=== PATIENT | female | born 1980 | race American Indian/Alaskan Native ===

== ENCOUNTER 2019-01-26 08:17 | Outpatient (CLI) | payer BC ==
[2019-01-26 08:48] LABS: Hematocrit 36.7 % (30.3-42.9); Hemoglobin 11.8 gm/dl (10.1-14.3); Mean Corpuscular HGB Conc 32 % (30-34); Mean Corpuscular Volume 80 fl (79-97); Platelet Count 286 K/mm3 (140-440); Red Blood Count 4.61 M/mm3 (3.65-5.03); Red Cell Distribution Width 15.2 % (13.2-15.2)
[2019-01-26 09:06] LABS: Alanine Aminotransferase 32 units/L (7-56); BUN/Creatinine Ratio 20; Blood Urea Nitrogen 14 mg/dL (7-17); Calcium 9.1 mg/dL (8.4-10.2); Chol/HDL Ratio 2.28 %; HDL Cholesterol 56 mg/dL (40-59); Hemolysis Index 0; LDL Cholesterol,Direct 77 mg/dL (50-130)
--- NOTE | 2019-01-26 10:00 | Mammography Report ---
BILATERAL DIGITAL DIAGNOSTIC MAMMOGRAM HISTORY: 611.6 Milky and yellowish nipple discharge. TECHNIQUE: Routine 2-D mammographic views plus right lateral and spot compression views.] COMPARISON: None. FINDINGS: Breast Density: Scattered fibroglandular appearance of the breast tissue. No mass, architectural distortion or suspicious calcifications. IMPRESSION: No mammographic evidence of malignancy. Recommend routine mammographic screening based on ACS guidel florin. BIRADS 1: Negative. FURTHER INFORMATION: According to the [employer], yearly mammograms are recommend ed starting at age 40 and continuing as long as a woman is in good health. Clinical Breast Exams shou ld be part of a periodic health exam-about every 3 years for women in their 20s and 30s and every yea r for women 40 and over. Breast self exam is an option for women starting in their 20s. Any breast ch sai noted on a breast self exam should be reported promptly to the patient's healthcare provider. Br east MRI is recommended for women with an approximately 20-25% or greater lifetime risk of breast can cer, including women with a strong family history of breast or ovarian cancer and women who have been treated for Hodgkin's disease. A negative Mammography report should not discourage follow up or biopsy of a clinically significant f inding and/or abnormality. Dense breast tissue may obscure small neoplasms. The patient will be entered into a reminder system with a target due date for the next screening mamm ogram. Signer Name: Kvng Siddiqui MD Signed: 01/26/2019 9:56 AM Workstation Name: [id number]
[2019-01-29 12:58] LABS: Vitamin D, 25-OH, D2 <4 ng/mL
== END 2019-01-26 08:18 | disposition home or self-care (01) ==
LOC: MAMMO 08:17
PROVIDERS: ATTEND Obstetrics & Gynecology
DX: Z13.1 Encounter for screening for diabetes mellitus (principal); Z13.220 Encounter for screening for lipoid disorders; Z13.21 Encounter for screening for nutritional disorder; Z11.3 Encounter for screening for infections with a predominantly sexual mode of transmission; N64.3 Galactorrhea not associated with childbirth; N64.52 Nipple discharge
CPT/HCPCS: 36415; 77066; 80053; 80061; 82306; 83036; 84146; 84443; 85027; 86592; 86706; 86803; 87806

== ENCOUNTER 2020-05-02 16:18 | Emergency (ER) | payer BC ==
--- NOTE | 2020-05-02 16:24 | Event Note ---
ED Screening Note Date of service: 05/02/20 Time: 16:24 ED Screening Note: Complains of cough and shortness of breath x5 days Patient is a sent here by her doctor to rule out pneumonia This initial assessment/diagnostic orders/clinical plan/treatment(s) is/are subject to change based on patients health status, clinical progression and re- assessment by fellow clinical providers in the ED. Further treatment and workup at subsequent clinical providers discretion. Patient/guardian urged not to elope from the ED as their condition may be serious if not clinically assessed and managed. Initial orders include: Labs Chest x-ray
[2020-05-02 16:27] VITALS: BP 153/79
[2020-05-02 17:09] LABS: Basophils # (Auto) 0.1 K/mm3 (0.0-0.1); Basophils % (Auto) 0.8 % (0.0-1.8); Eosinophils % (Auto) 0.6 % (0.0-4.3); Hematocrit 35.8 % (30.3-42.9); Lymphocytes # (Auto) 2.9 K/mm3 (1.2-5.4); Lymphocytes % (Auto) 42.1 % (13.4-35.0); Mean Corpuscular HGB Conc 34 % (30-34); Mean Corpuscular Volume 78 fl (79-97); Monocytes # (Auto) 0.6 K/mm3 (0.0-0.8); Monocytes % (Auto) 8.4 % (0.0-7.3); Platelet Count 349 K/mm3 (140-440); Red Blood Count 4.58 M/mm3 (3.65-5.03); Red Cell Distribution Width 15.7 % (13.2-15.2)
--- NOTE | 2020-05-02 17:14 | XRay Report ---
CHEST 2 VIEWS INDICATION / CLINICAL INFORMATION: Cough, congestion and difficulty breathing for one week.. COMPARISON: None available. FINDINGS: SUPPORT DEVICES: None. HEART / MEDIASTINUM: The heart size and pulmonary vasculature are normal. LUNGS / PLEURA: No significant pulmonary or pleural abnormality. No pneumothorax. ADDITIONAL FINDINGS: No significant additional findings. IMPRESSION: No acute findings. Signer Name: Herbert Hawkins MD Signed: 05/02/2020 5:09 PM Workstation Name: [id number]
--- NOTE | 2020-05-02 17:30 | Emergency Department Report ---
ED General Adult HPI - General Chief complaint: Upper Respiratory Infection Stated complaint: CHEST PAINS Time Seen by Provider: 05/02/20 16:21 Source: patient Mode of arrival: Ambulatory Limitations: No Limitations - History of Present Illness Initial comments: 39-year-old -Cuban female patient presents with complaints of cough and shortness of breath x5 days. Patient states she was seen here by her doctor for a chest x-ray to rule out pneumonia. She is currently on day 5 of her Z-Tye and Medrol Dosepak and her symptoms have not improved. She states a fever 3 days ago of 100.5. She denies any hemoptysis, chest pain, nausea/vomiting/ diarrhea, or history of COPD. She does report recurrent bronchitis and denies history of smoking. Patient also denies any leg pain/swelling, history of DVT/PE, hormone use, or history of cancer. - Related Data Previous Rx's Medication Instructions Recorded Last Taken Type Albuterol Mdi (or & Nicu Only) 2 puff IH QID PRN #8.5 gram 05/02/20 Unknown Rx [ProAir HFA Inhaler] Levocetirizine Dihydrochloride 5 mg PO QHS #10 tablet 05/02/20 Unknown Rx [Xyzal] levoFLOXacin [Levaquin] 750 mg PO QDAY #5 tablet 05/02/20 Unknown Rx Allergies Allergy/AdvReac Type Severity Reaction Status Date / Time latex Allergy Rash Verified 05/02/20 16:23 Penicillins Allergy Rash,WHELPS Verified 05/02/20 16:23 ED Review of Systems ROS: Stated complaint: CHEST PAINS Other details as noted in HPI Constitutional: fever, malaise. denies: chills, diaphoresis, weakness ENT: denies: throat pain Respiratory: cough, shortness of breath Cardiovascular: denies: chest pain, palpitations, edema, syncope Endocrine: denies: excessive sweating Gastrointestinal: denies: abdominal pain, nausea, vomiting, diarrhea Musculoskeletal: denies: back pain Hematological/Lymphatic: denies: swollen glands ED Past Medical Hx - Past Medical History Hx Arthritis: Yes - Surgical History Hx Cholecystectomy: Yes - Social History Smoking Status: Never Smoker Substance Use Type: None - Medications Home Medications: Home Medications Medication Instructions Recorded Confirmed Last Taken Type Albuterol Mdi (or & Nicu Only) 2 puff IH QID PRN #8.5 gram 05/02/20 Unknown Rx [ProAir HFA Inhaler] Levocetirizine Dihydrochloride 5 mg PO QHS #10 tablet 05/02/20 Unknown Rx [Xyzal] levoFLOXacin [Levaquin] 750 mg PO QDAY #5 tablet 05/02/20 Unknown Rx ED Physical Exam - General Limitations: No Limitations General appearance: alert, in no apparent distress - Head Head exam: Present: atraumatic, normocephalic - Eye Eye exam: Present: normal appearance. Absent: scleral icterus - Neck Neck exam: Present: normal inspection, full ROM. Absent: lymphadenopathy - Respiratory Respiratory exam: Present: wheezes (Mild, diffuse), rhonchi (Diffuse). Absent: respiratory distress - Cardiovascular Cardiovascular Exam: Present: regular rate, normal rhythm, normal heart sounds - Extremities Exam Extremities exam: Present: full ROM. Absent: calf tenderness (No swelling or pain noted to legs bilaterally) - Back Exam Back exam: Present: normal inspection - Neurological Exam Neurological exam: Present: alert, oriented X3, normal gait - Psychiatric Psychiatric exam: Present: normal affect, normal mood - Skin Skin exam: Present: warm, dry, intact, normal color. Absent: rash, cyanosis, diaphoretic ED Course Vital Signs 05/02/20 16:23 Temperature 98.3 F Pulse Rate 86 Respiratory 18 Rate Blood Pressure 153/79 O2 Sat by Pulse 98 Oximetry ED Medical Decision Making - Lab Data Result diagrams: 05/02/20 16:39 05/02/20 16:39 Lab Results 05/02/20 05/02/20 Range/Units 16:39 16:39 WBC 6.9 (4.5-11.0) K/mm3 RBC 4.58 (3.65-5.03) M/mm3 Hgb 12.0 (10.1-14.3) gm/dl Hct 35.8 (30.3-42.9) % MCV 78 L (79-97) fl MCH 26 L (28-32) pg MCHC 34 (30-34) % RDW 15.7 H (13.2-15.2) % Plt Count 349 (140-440) K/mm3 Lymph % (Auto) 42.1 H (13.4-35.0) % Major % (Auto) 8.4 H (0.0-7.3) % Eos % (Auto) 0.6 (0.0-4.3) % Baso % (Auto) 0.8 (0.0-1.8) % Lymph # (Auto) 2.9 (1.2-5.4) K/mm3 Major # (Auto) 0.6 (0.0-0.8) K/mm3 Eos # (Auto) 0.0 (0.0-0.4) K/mm3 Baso # (Auto) 0.1 (0.0-0.1) K/mm3 Seg Neutrophils % 48.1 (40.0-70.0) % Seg Neutrophils # 3.3 (1.8-7.7) K/mm3 Sodium 137 (137-145) mmol/L Potassium 3.3 L (3.6-5.0) mmol/L Chloride 98.9 (98-107) mmol/L Carbon Dioxide 27 (22-30) mmol/L Anion Gap 14 mmol/L BUN 12 (7-17) mg/dL Creatinine 0.8 (0.6-1.2) mg/dL Estimated GFR > 60 ml/min BUN/Creatinine Ratio 15 % Glucose 83 (65-100) mg/dL Calcium 9.3 (8.4-10.2) mg/dL Total Bilirubin 0.30 (0.1-1.2) mg/dL AST 18 (5-40) units/L ALT 46 (7-56) units/L Alkaline Phosphatase 84 (35-129) units/L Total Protein 8.6 H (6.3-8.2) g/dL Albumin 4.3 (3.9-5) g/dL Albumin/Globulin Ratio 1.0 % - Radiology Data Radiology results: report reviewed CHEST 2 VIEWS INDICATION / CLINICAL INFORMATION: Cough, congestion and difficulty breathing for one week.. COMPARISON: None available. FINDINGS: SUPPORT DEVICES: None. HEART / MEDIASTINUM: The heart size and pulmonary vasculature are normal. LUNGS / PLEURA: No significant pulmonary or pleural abnormality. No pneumothorax. ADDITIONAL FINDINGS: No significant additional findings. IMPRESSION: No acute findings. - Medical Decision Making 39-year-old -Cub[place] female patient presents with complaints of cough and shortness of breath x5 days. Patient states she was seen here by her doctor for a chest x-ray to rule out pneumonia. She is currently on day 5 of her Z- Tye and Medrol Dosepak and her symptoms have not improved. She states a fever 3 days ago of 100.5. She denies any hemoptysis, chest pain, nausea/vomiting/diarrhea, or history of COPD. She does report recurrent bronchitis and denies history of smoking. Patient also denies any leg pain/swelling, history of DVT/PE, hormone use, or history of cancer. On exam, she has diffuse rhonchi with mild wheezing. Chest x-ray is negative fo r pneumonia or other acute findings. CBC shows normal white count. She is afebrile and nontachycardic and stable for discharge home. Patient to start Levaquin. Recommend patient get Covid testing tomorrow morning and self quarantine until results are back. Patient also to follow-up with her PCP within 3 days. Strict return precautions were discussed in great detail with patient who verbalizes understanding. Critical care attestation.: If time is entered above; I have spent that time in minutes in the direct care of this critically ill patient, excluding procedure time. ED Disposition Clinical Impression: Acute bacterial bronchitis Disposition: DC-01 TO HOME OR SELFCARE Is pt being admited?: No Condition: Stable Instructions: Acute Bronchitis, Adult, Acute Bronchitis (ED) Prescriptions: Levocetirizine Dihydrochloride [Xyzal] 5 mg PO QHS #10 tablet levoFLOXacin [Levaquin] 750 mg PO QDAY #5 tablet Albuterol Mdi (or & Nicu Only) [ProAir HFA Inhaler] 2 puff IH QID PRN #8.5 gram PRN Reason: Shortness Of Breath Referrals: PRIMARY CAREMD [Primary Care Provider] - 05/06/20 Forms: Work/School Release Form(ED)
[2020-05-02 17:40] LABS: Alanine Aminotransferase 46 units/L (7-56); Albumin 4.3 g/dL (3.9-5); BUN/Creatinine Ratio 15; Blood Urea Nitrogen 12 mg/dL (7-17); Calcium 9.3 mg/dL (8.4-10.2); Hemolysis Index 12
== END 2020-05-02 18:00 | disposition home or self-care (01) ==
LOC: ED 16:18
DX: J20.9 Acute bronchitis, unspecified (principal); M19.90 Unspecified osteoarthritis, unspecified site
CPT/HCPCS: 36415; 71046; 80053; 85025; 99283

== ENCOUNTER 2020-06-11 16:48 | Emergency (ER) | payer BC ==
[2020-06-11 18:58] VITALS: BP 145/68
--- NOTE | 2020-06-11 19:30 | XRay Report ---
CHEST PA AND LATERAL VIEWS INDICATION: Shortness of breath. COMPARISON: 05/02/2020 FINDINGS: Support devices: None. Heart: Within normal limits. Lungs/Pleura: No acute pulmonary or pleural findings. IMPRESSION: 1. No acute findings. Signer Name: Neymar Castaneda MD Signed: 06/11/2020 7:26 PM Workstation Name: [id number]
--- NOTE | 2020-06-11 20:25 | Emergency Department Report ---
- General Chief Complaint: Dyspnea/Respdistress Stated Complaint: POSITIVE COVID, HEADACHE, CHEST PAIN Time Seen by Provider: 06/11/20 20:12 Source: patient Mode of arrival: Ambulatory Limitations: No Limitations - History of Present Illness Initial Comments: Patient is a 39-year-old female presents emergency room with complaints of COVID-19 symptoms. She states that she tested positive on 06/03/2020. She states that her symptoms began on. She states that she saw her primary care doctor on 06/06/2020 and was started on a Z-Tye and prednisone. She states that she has been having headache, nausea, lightheadedness, shortness of breath with coughing, cough with clear mucus production, diarrhea. She denies any vomiting, diarrhea, fever, chest pain, abdominal pain. She is tolerating p.o. intake. She has a past medical history of migraines. Allergy to penicillin and latex. Last menstrual cycle 05/25/2020. - Related Data Previous Rx's Medication Instructions Recorded Last Taken Type Albuterol Mdi (or & Nicu Only) 2 puff IH QID PRN #8.5 gram 05/02/20 Unknown Rx [ProAir HFA Inhaler] Levocetirizine Dihydrochloride 5 mg PO QHS #10 tablet 05/02/20 Unknown Rx [Xyzal] levoFLOXacin [Levaquin] 750 mg PO QDAY #5 tablet 05/02/20 Unknown Rx Butalb/Acetaminophen/Caffeine 1 cap PO Q8HR PRN #12 cap 06/11/20 Unknown Rx [Fioricet 50-300-40 mg CAP] Ondansetron [Zofran Odt] 4 mg PO Q8HR PRN #12 tab.rapdis 06/11/20 Unknown Rx Allergies Allergy/AdvReac Type Severity Reaction Status Date / Time latex Allergy Rash Verified 05/02/20 16:23 Penicillins Allergy Rash,WHELPS Verified 05/02/20 16:23 ED Review of Systems ROS: Stated complaint: POSITIVE COVID, HEADACHE, CHEST PAIN Other details as noted in HPI Comment: All other systems reviewed and negative ED Past Medical Hx - Past Medical History Previous Medical History?: Yes Hx Arthritis: Yes - Surgical History Hx Cholecystectomy: Yes Additional Surgical History: Tubal ligation in 2002 - Social History Smoking Status: Never Smoker Substance Use Type: None - Medications Home Medications: Home Medications Medication Instructions Recorded Confirmed Last Taken Type Albuterol Mdi (or & Nicu Only) 2 puff IH QID PRN #8.5 gram 05/02/20 Unknown Rx [ProAir HFA Inhaler] Levocetirizine Dihydrochloride 5 mg PO QHS #10 tablet 05/02/20 Unknown Rx [Xyzal] levoFLOXacin [Levaquin] 750 mg PO QDAY #5 tablet 05/02/20 Unknown Rx Butalb/Acetaminophen/Caffeine 1 cap PO Q8HR PRN #12 cap 06/11/20 Unknown Rx [Fioricet 50-300-40 mg CAP] Ondansetron [Zofran Odt] 4 mg PO Q8HR PRN #12 tab.rapdis 06/11/20 Unknown Rx ED Physical Exam - General Limitations: No Limitations General appearance: alert, in no apparent distress - Head Head exam: Present: atraumatic, normocephalic - Eye Eye exam: Present: normal appearance - ENT ENT exam: Present: normal orophraynx, mucous membranes moist, TM's normal bilaterally, normal external ear exam - Respiratory Respiratory exam: Present: normal lung sounds bilaterally. Absent: respiratory distress, wheezes, rales, rhonchi, stridor, chest wall tenderness, accessory muscle use, decreased breath sounds, prolonged expiratory - Cardiovascular Cardiovascular Exam: Present: regular rate, normal rhythm, normal heart sounds. Absent: systolic murmur, diastolic murmur, rubs, gallop - Neurological Exam Neurological exam: Present: alert, oriented X3 - Psychiatric Psychiatric exam: Present: normal affect, normal mood - Skin Skin exam: Present: warm, dry, intact ED Course Vital Signs 06/11/20 18:47 Temperature 98.2 F Pulse Rate 60 Respiratory 24 Rate Blood Pressure 145/68 [Right] O2 Sat by Pulse 100 Oximetry ED Medical Decision Making - Radiology Data Radiology results: report reviewed Ordering Physician: SABRA SOFIA Date of Service: 06/11/20 Procedure(s): XR chest routine 2V Accession Number(s): [id number] cc: SABRA SOFIA Fluoro Time In Minutes: CHEST PA AND LATERAL VIEWS INDICATION: Shortness of breath. COMPARISON: 05/02/2020 FINDINGS: Support devices: None. Heart: Within normal limits. Lungs/Pleura: No acute pulmonary or pleural findings. IMPRESSION: 1. No acute findings. Signer Name: Neymar Castaneda MD Signed: 06/11/2020 7:26 PM Workstation Name: [employer] [id number] Transcribed By: SKY Dictated By: Neymar Castaneda MD Electronically Authenticated By: Neymar Castaneda MD Signed Date/Time: 06/11/201925 DD/ 25 TD/TT: - Medical Decision Making Patient is a 39-year-old female presents emergency room with complaints of COVID-19 symptoms. She states that she tested positive on 06/03/2020. She states that her symptoms began on. She states that she saw her primary care doctor on 06/06/2020 and was started on a Z-Tye and prednisone. She states that she has been having headache, nausea, lightheadedness, shortness of breath with coughing, cough with clear mucus production, diarrhea. She denies any vomiting, diarrhea, fever, chest pain, abdominal pain. She is tolerating p.o. intake. She has a past medical history of migraines. Allergy to penicillin and latex. Last menstrual cycle 05/25/2020. Vitals are stable. Repeat oxygen saturation is 100% on room air, heart rate is 55 bpm. She has no tachycardia, no fever, no hypoxia. No abnormality on physical examination as documented in chart. She has no clinical signs of bacterial pneumonia or bacterial bronchitis. She has no clinical signs of dehydration. She is tolerating p.o. intake. CXR: 1. No acute findings. Patient does not meet hospital criteria for admission for COVID-19. Patient given prescription for Fioricet for her migraine headaches and given Zofran to take as needed for her nausea. Advised patient please take medication as prescribed. Please increase your fluid intake over the next several days. May take lgxv-hus-yvkwpqi cold symptom relief medication such as Mucinex or TheraFlu. Follow-up with a primary care doctor for reexamination. Return to emergency room immediately for any new or worsening symptoms including but not limited to difficulty breathing, shortness of breath, severe chest pain, unable to tolerate by mouth intake, etc. Please self quarantine for 2 weeks from the onset of your symptoms. Please do not go out in public. If you are around others at home please wear a mask. If you need to cough or sneeze please do so in a napkin and immediately throw it away and immediately wash your hands. Wash your hands frequently. Wipe everything down. - Differential Diagnosis URI, PNA, COVID-19, viral syndrome Critical care attestation.: If time is entered above; I have spent that time in minutes in the direct care of this critically ill patient, excluding procedure time. ED Disposition Clinical Impression: COVID-19 Disposition: DC-01 TO HOME OR SELFCARE Is pt being admited?: No Does the pt Need Aspirin: No Condition: Stable Instructions: COVID-19 Frequently Asked Questions, COVID-19, COVID-19: How to Protect Yourself and Others - CDC, Prevent the Spread of COVID-19 if You Are Sick - [facility] Additional Instructions: please take medication as prescribed. Please increase your fluid intake over the next several days. May take vcmw-zsj-amdfegk cold symptom relief medication such as Mucinex or TheraFlu. Follow-up with a primary care doctor for reexamination. Return to emergency room immediately for any new or worsening symptoms including but not limited to difficulty breathing, shortness of breath, severe chest pain, unable to tolerate by mouth intake, etc. Please self quarantine for 2 weeks from the onset of your symptoms. Please do not go out in public. If you are around others at home please wear a mask. If you need to cough or sneeze please do so in a napkin and immediately throw it away and immediately wash your hands. Wash your hands frequently. Wipe everything down. Prescriptions: Butalb/Acetaminophen/Caffeine [Fioricet 50-300-40 mg CAP] 1 cap PO Q8HR PRN #12 cap PRN Reason: headache Ondansetron [Zofran Odt] 4 mg PO Q8HR PRN #12 tab.rapdis PRN Reason: Nausea And Vomiting Referrals: JENNIFER FLORES MD [Primary Care Provider] - 2-3 Days Forms: Work/School Release Form(ED) Time of Disposition: 20:23 Print Language: CZECH
== END 2020-06-11 20:42 | disposition home or self-care (01) ==
LOC: ED 16:48
DX: U07.1 COVID-19 (principal); M19.90 Unspecified osteoarthritis, unspecified site; Z90.49 Acquired absence of other specified parts of digestive tract; Z98.51 Tubal ligation status; Z79.899 Other long term (current) drug therapy; Z91.041 Radiographic dye allergy status; Z88.0 Allergy status to penicillin
CPT/HCPCS: 71046; 99283

== ENCOUNTER 2020-10-14 08:59 | Outpatient (CLI) | payer BC ==
[2020-10-14 10:58] LABS: Alanine Aminotransferase 27 units/L (7-56); Albumin 3.7 g/dL (3.9-5); BUN/Creatinine Ratio 14; Blood Urea Nitrogen 11 mg/dL (7-17); Calcium 8.9 mg/dL (8.4-10.2); Hemolysis Index 5
== END 2020-10-14 09:00 | disposition home or self-care (01) ==
LOC: ECHO 08:59
PROVIDERS: ATTEND Internal Medicine Cardiovascular Disease
DX: I08.1 Rheumatic disorders of both mitral and tricuspid valves (principal); I27.20 Pulmonary hypertension, unspecified; I10 Essential (primary) hypertension
CPT/HCPCS: 36415; 80053; 83880; 84443; 93306

== ENCOUNTER 2020-10-29 11:00 | Outpatient (CLI) | payer BC | END 2020-10-29 11:01 | disposition home or self-care (01) | LOC: SLR 11:00 | PROVIDERS: ATTEND Internal Medicine Critical Care Medicine | DX: G47.30 Sleep apnea, unspecified (principal) | CPT/HCPCS: 95810 ==

== ENCOUNTER 2021-01-03 07:07 | Day surgery (SDC) | payer BC ==
[~2021-01-03 07:07] MED LIST: SODIUM CHLORIDE 0.9% 1000 ML 1,000 ML IV SCH
[2021-01-03] MEDS ORDERED: fentaNYL 100 MCG/2 ML INJ ONE (07:53)
[2021-01-03] MEDS ORDERED: propofoL 200 MG/20 ML VIAL IV ONE ×3 (07:53→09:55)
--- NOTE | 2021-01-03 08:31 | Anesthesia Consultation ---
Anesthesia Consult and Med Hx Date of service: 01/03/21 - Airway Anesthetic Teeth Evaluation: Good ROM Head & Neck: Adequate Mental/Hyoid Distance: Adequate Mallampati Class: Class II Intubation Access Assessment: Probably Good - Pre-Operative Health Status ASA Pre-Surgery Classification: ASA2 Proposed Anesthetic Plan: MAC - Pulmonary Hx Smoking: No Hx Respiratory Symptoms: No Hx Sleep Apnea: Yes (pending repeat sleep study) - Cardiovascular System Hx Hypertension: No - Central Nervous System CVA: No - Gastrointestinal Hx Gastroesophageal Reflux Disease: Yes - Endocrine Hx Renal Disease: No Hx Liver Disease: No Hx Insulin Dependent Diabetes: No Hx Non-Insulin Dependent Diabetes: No Hx Thyroid Disease: No - Other Systems Hx Obesity: Yes - Additional Comments Anesthesia Medical History Comments: Hx PONV
--- NOTE | 2021-01-03 08:31 | Anesthesia Day of Surgery ---
Anesthesia Day of Surgery - Day of Surgery Patient Examined: Yes Patient H&P Reviewed: Yes Patient is NPO: Yes
[2021-01-03] MEDS ORDERED: ONDANSETRON 4 MG/2 ML INJ ONE (10:20)
--- NOTE | 2021-01-03 10:20 | Short Stay Summary ---
Short Stay Documentation Date of service: 01/03/21 Narrative H&P: Ms. Vargas is a 40-year-old woman with intermittent bright red blood per rectum for approximately 8 months. She also has right upper quadrant pain with nausea heartburn and chronic cough. She was placed on Protonix. She denies clare GI bleeding except for the bright red blood on toilet paper. There is no hematemesis. There is been no weight loss. There is no family history of colon cancer. Patient was diagnosed with giardiasis and treated. - History Past Surgical History: cholecystectomy, Other (Tubal ligation) Social history: no smoking, no alcohol abuse - Allergies and Medications Current Medications: Allergies Iodinated Contrast Media Allergy (Verified 01/01/21 14:17) Unknown latex Allergy (Verified 05/02/20 16:23) Rash Penicillins Allergy (Verified 05/02/20 16:23) Rash,WHELPS Home Medications Medication Instructions Recorded Confirmed Last Taken Type Albuterol Mdi (or & Nicu Only) 2 puff IH QID PRN #8.5 gram 05/02/20 Unknown Rx [ProAir HFA Inhaler] Levocetirizine Dihydrochloride 5 mg PO QHS #10 tablet 05/02/20 Unknown Rx [Xyzal] levoFLOXacin [Levaquin] 750 mg PO QDAY #5 tablet 05/02/20 Unknown Rx Butalb/Acetaminophen/Caffeine 1 cap PO Q8HR PRN #12 cap 06/11/20 Unknown Rx [Fioricet 50-300-40 mg CAP] Ondansetron [Zofran Odt] 4 mg PO Q8HR PRN #12 tab.rapdis 06/11/20 Unknown Rx Active Medications Sodium Chloride (Nacl 0.9% 1000 Ml) 1,000 mls @ 50 mls/hr IV DIRECT EDSON Last Admin: 01/03/21 08:05 Dose: 50 mls/hr Documented by: - Physical exam General appearance: no acute distress Lungs: Clear to auscultation Heart: Regular rate, Normal S1, Normal S2 Gastrointestinal: normal Extremities: No edema - Brief post op/procedure progress note Date of procedure: 01/03/21 Pre-op diagnosis: GERD, Rectal bleed Post-op diagnosis: other (normal EGD, large rectal polyp, and 3 other smaller colonic polyps) Procedure: EGD, Colonoscopy with hot biopsy polypectomy and tattooing Anesthesia: MAC Findings: 1. Normal EGD 2. 3 cm pedunculated polyp in rectum, removed piecemeal with hot snare polypectomy. Tattooed with 3 ml Mila Ink. 3. 2 Descending colon polyps, hot snared. 3. 1 proximal transverse colon polyp, hot snared. Surgeon: KIEL SINGH Estimated blood loss: minimal Pathology: list (1. Transverse colon polyp, 2. 2 descending colon polyps 3. Rectal polyp) Specimen disposition: to lab Condition: stable - Disposition Condition at discharge: Good Disposition: DC-01 TO HOME OR SELFCARE Short Stay Discharge Plan Diet: regular Follow up with: PAULA FLORES MD [Primary Care Provider] - 7 Days
--- NOTE | 2021-01-03 10:33 | Post Anesthesia Evaluation ---
- Post Anesthesia Evaluation Patient Participated: Yes Airway Patent: Yes Stable Respiratory Function: Yes Nausea/Vomiting: Yes (improved with IV antiemetic) Temp > 96.8F: Yes Pain Manageable: Yes Adequeate Hydration: Yes Anesthesia Complications: Yes (PONV)
--- NOTE | 2021-01-03 10:53 | Operative Report ---
DATE OF SURGERY: 01/03/2021 UPPER ENDOSCOPY AND COLONOSCOPY REPORT PROCEDURE: Upper endoscopy and colonoscopy with hot snare polypectomy and tattooing. PREOPERATIVE DIAGNOSIS: Heartburn and rectal bleeding. POSTOPERATIVE DIAGNOSIS: Normal upper endoscopy and multiple polyps in the colon. SEDATION: MAC by anesthesia. HISTORY: The patient is a 40-year-old woman with intermittent heartburn as well as generalized abdominal pain. She is on a proton pump inhibitor and has persistent symptoms. She also has intermittent bright red blood per rectum on the toilet paper for the last 8 months. The procedure, indications, risks, and benefits were explained and consent was obtained. DESCRIPTION OF PROCEDURE: The patient was placed in left lateral decubitus position and sedated. Endoscope was passed through the mouth and oropharynx into the descending duodenum. Scope was then gradually withdrawn with close inspection of mucosa. The patient was subsequently rotated and a colonoscopy was performed. The scope was advanced through the rectum after digital examination and passed with minimal difficulty to the cecum, which was identified by the ileocecal valve and the appendiceal orifice. Scope was then gradually withdrawn with close inspection of mucosa. Prep was good. FINDINGS: 1. Normal esophagus with sharp Z line at 40 cm from the incisors. 2. Normal gastric antrum, fundus, body and cardia. 3. Normal-appearing duodenal bulb and duodenum. 4. Large approximately 3 cm rectal polyp with short base consistent with pedunculation. This was removed piecemeal with a hot snare and the base was clean at the end of the procedure. A 3 mL of Mila ink were injected in and around the area for tattooing. 5. One 1 cm sessile proximal transverse colon polyp removed with hot snare polypectomy. 6. Two sessile descending colon polyps measuring 6 and 8 mm -- removed with hot snare polypectomy. 7. Remainder of visualized colonic mucosa is normal appearing with no evidence of mass lesions, vascular lesions or inflammation. The patient tolerated the procedure well without immediate complication. IMPRESSION: 1. Normal upper endoscopy. 2. Large rectal polyp removed piecemeal with clean base. Area tattooed. 3. Two descending colon polyps and 1 transverse colon polyp -- removed with hot snare polypectomy. 4. Otherwise, normal colonoscopy. RECOMMENDATIONS: 1. Follow up biopsies. 2. If no adenocarcinoma identified, repeat colonoscopy in 1 year. TID: [id number] RECEIPT: [id number] [facility] cc: Leo Wheeler MD, Arian Alejandra MD
[2021-01-03 16:20] VITALS: BP 145/87
== END 2021-01-03 07:08 | disposition home or self-care (01) ==
LOC: GIO 07:07
PROVIDERS: ATTEND Internal Medicine Gastroenterology
DX: K62.5 Hemorrhage of anus and rectum (principal); R12 Heartburn; R10.84 Generalized abdominal pain; D12.3 Benign neoplasm of transverse colon; D12.4 Benign neoplasm of descending colon; D12.8 Benign neoplasm of rectum; G47.30 Sleep apnea, unspecified; K21.9 Gastro-esophageal reflux disease without esophagitis; E66.9 Obesity, unspecified; M19.90 Unspecified osteoarthritis, unspecified site; G43.909 Migraine, unspecified, not intractable, without status migrainosus; Z90.10 Acquired absence of unspecified breast and nipple; Z88.0 Allergy status to penicillin; Z91.041 Radiographic dye allergy status; Z90.49 Acquired absence of other specified parts of digestive tract; Z98.51 Tubal ligation status; Z68.41 Body mass index [BMI] 40.0-44.9, adult
CPT/HCPCS: 43235; 45381; 45385; 88305; J2405; J2704; J3010; J7030

== ENCOUNTER 2021-04-25 06:33 | Day surgery (SDC) | payer BC ==
[2021-04-25] MEDS ORDERED: SODIUM CHLORIDE 0.9% 1000 ML 1,000 ML IV SCH (07:00)
--- NOTE | 2021-04-25 08:04 | Anesthesia Consultation ---
Anesthesia Consult and Med Hx Date of service: 04/25/21 - Airway Anesthetic Teeth Evaluation: Good ROM Head & Neck: Adequate Mental/Hyoid Distance: Adequate Mallampati Class: Class I Intubation Access Assessment: Good - Pulmonary Exam CTA: Yes - Cardiac Exam Cardiac Exam: No Murmur - Pre-Operative Health Status ASA Pre-Surgery Classification: ASA3 Proposed Anesthetic Plan: MAC - Pulmonary Hx Smoking: No Hx Respiratory Symptoms: No Hx Sleep Apnea: Yes (pending repeat sleep study) - Cardiovascular System Hx Hypertension: No - Central Nervous System CVA: No - Gastrointestinal Hx Gastroesophageal Reflux Disease: Yes - Endocrine Hx Renal Disease: No Hx Liver Disease: No Hx Insulin Dependent Diabetes: No Hx Non-Insulin Dependent Diabetes: No Hx Thyroid Disease: No - Other Systems Hx Obesity: Yes
--- NOTE | 2021-04-25 08:04 | Anesthesia Day of Surgery ---
Anesthesia Day of Surgery - Day of Surgery Patient Examined: Yes Patient H&P Reviewed: Yes Patient is NPO: Yes
[2021-04-25] MEDS ORDERED: propofoL 200 MG/20 ML VIAL IV ONE ×2 (08:13)
[2021-04-25] MEDS ORDERED: LIDOCAINE MPF (2%) 20 MG/1 ML VIAL 5 ML ONE (08:13)
[2021-04-25] MEDS ORDERED: WATER FOR IRRIG STERILE 1,000 ML BOTTLE ONE (08:29)
[2021-04-25] MEDS ORDERED: WATER FOR IRRIG STERILE 250 ML BOTTLE IR ONE (08:29)
--- NOTE | 2021-04-25 09:05 | Short Stay Summary ---
Short Stay Documentation Date of service: 04/25/21 Narrative H&P: Pt with hx of rectal polyp with dysplasia resected 01/03/21. She had recent rectal bleeding. No abd pain, N/V, weight loss. BMs regular, q 2-3 days. - History Past Medical History: migraines Past Surgical History: cholecystectomy, Other (Tubal ligation) Social history: no smoking, no alcohol abuse - Allergies and Medications Current Medications: Allergies Iodinated Contrast Media Allergy (Verified 01/01/21 14:17) Unknown latex Allergy (Verified 05/02/20 16:23) Rash Penicillins Allergy (Verified 05/02/20 16:23) Rash,WHELPS Home Medications Medication Instructions Recorded Confirmed Last Taken Type Albuterol Mdi (or & Nicu Only) 2 puff IH QID PRN #8.5 gram 05/02/20 Unknown Rx [ProAir HFA Inhaler] Levocetirizine Dihydrochloride 5 mg PO QHS #10 tablet 05/02/20 Unknown Rx [Xyzal] levoFLOXacin [Levaquin] 750 mg PO QDAY #5 tablet 05/02/20 Unknown Rx Butalb/Acetaminophen/Caffeine 1 cap PO Q8HR PRN #12 cap 06/11/20 Unknown Rx [Fioricet 50-300-40 mg CAP] Ondansetron [Zofran Odt] 4 mg PO Q8HR PRN #12 tab.rapdis 06/11/20 Unknown Rx Active Medications Sodium Chloride (Nacl 0.9% 1000 Ml) 1,000 mls @ 50 mls/hr IV DIRECT EDSON - Physical exam General appearance: no acute distress HEENT: Atraumatic, PERRLA, EOMI Lungs: Clear to auscultation Heart: Regular rate, Normal S1, Normal S2 Gastrointestinal: normal Extremities: No edema - Brief post op/procedure progress note Date of procedure: 04/25/21 Pre-op diagnosis: Rectal bleed Post-op diagnosis: other (1. Hepatic flexure polyp,) Procedure: Colonoscopy with hot snare polypectomy Anesthesia: MAC Findings: 1. 6 mm sessile hepatic flexure polyp, removed with hot snare polypectomy. 2. 4 mm sigmoid polyp, removed with cold snare, but not retrievable. 3. Tattoo in rectum, but o/w normal mucosa. Surgeon: KIEL SINGH Estimated blood loss: none Pathology: list (1. Hepatic flexure polyp) Specimen disposition: to lab Condition: stable - Disposition Condition at discharge: Good Disposition: 01 HOME / SELF CARE / HOMELESS Short Stay Discharge Plan Diet: regular Follow up with: PAULA FLORES MD [Primary Care Provider] - 7 Days
[2021-04-25] MEDS ORDERED: ONDANSETRON 4 MG/2 ML INJ ONE (09:06)
[2021-04-25] MEDS ORDERED: ONDANSETRON 4 MG/2 ML INJ IV PRN (09:10)
--- NOTE | 2021-04-25 09:31 | Operative Report ---
DATE OF SURGERY: 04/25/2021 PROCEDURE: Colonoscopy with hot snare polypectomy. PREOPERATIVE DIAGNOSIS: Rectal bleed and history of colon polyps. POSTOPERATIVE DIAGNOSIS: Colon polyp. SEDATION: MAC by Anesthesia. HISTORY: The patient is a 40-year-old woman who recently underwent colonoscopy in December with rectal polyp with high-grade dysplasia that was incompletely resected. She has experienced rectal bleeding recently. Procedure indications, risks, and benefits were explained and consent was obtained. DESCRIPTION OF PROCEDURE: The patient was placed in left lateral decubitus position and sedated. Video colonoscope was passed through the rectum after digital examination and passed with minimal difficulty to the cecum, which was identified by the ileocecal valve and the appendiceal orifice. The scope was then gradually withdrawn with close inspection of mucosa. Prep was good. FINDINGS: 1. A 6 mm hepatic flexure polyp - removed with hot snare polypectomy. 2. A 4 mm sigmoid polyp - removed with cold snare polypectomy, but lost to retrieval. 3. Tattoo noted in the rectum, but the mucosa is normal with no evidence of residual polyp. 4. Otherwise, normal colonoscopy. The patient tolerated the procedure well without immediate complication. IMPRESSION: 1. Hepatic flexure polyp - removed with hot snare polypectomy. 2. Rectal tattoo. RECOMMENDATIONS: 1. Follow up biopsy. 2. Repeat colonoscopy in 3 years. TID: [id number] RECEIPT: [id number] [facility]/KALPANA
[2021-04-25 09:39] VITALS: BP 127/64
--- NOTE | 2021-04-25 10:34 | Post Anesthesia Evaluation ---
- Post Anesthesia Evaluation Patient Participated: Yes Airway Patent: Yes Stable Respiratory Function: Yes Nausea/Vomiting: Yes (IV antiemetic given) Temp > 96.8F: Yes Pain Manageable: Yes Adequeate Hydration: Yes Anesthesia Complications: No
== END 2021-04-25 09:40 | disposition home or self-care (01) ==
LOC: GIO 06:33
PROVIDERS: ATTEND Internal Medicine Gastroenterology
DX: K62.5 Hemorrhage of anus and rectum (principal); D12.3 Benign neoplasm of transverse colon; K21.9 Gastro-esophageal reflux disease without esophagitis; E66.9 Obesity, unspecified; Z79.899 Other long term (current) drug therapy; Z88.0 Allergy status to penicillin; Z91.041 Radiographic dye allergy status; Z91.040 Latex allergy status; Z98.890 Other specified postprocedural states
CPT/HCPCS: 45385; 81025; 88305; J2405; J2704; J7030